=== PATIENT | female | born 1990 | race Caucasian/White ===

== ENCOUNTER 2023-05-07 12:55 | Emergency (ER) | payer BC, SELFPAY ==
[2023-05-07 12:57] VITALS: BP 155/88
--- NOTE | 2023-05-07 13:17 | ED.GENMED ---
History of Present Illness
General
Chief Complaint: Abdominal Pain
Time Seen by Provider: 05/07/23 13:17
Travel History
Have you had any contact with someone who has COVID-19?: No
Do you have any symptoms of coronavirus? Fever > 100 degrees, chills, cough, shortness of breath, sore throat, loss of taste or smell, muscle aches, or headache?: No
History of Present Illness
History of Present Illness:
HPI: Patient presents with left flank and left-sided abdominal pain. This started about 2 weeks ago. The symptoms worsen with position changes. She has some associated nausea. She has had cholecystectomy in the past. This does not feel like
endometriosis exacerbation. She has had kidney stones but is not sure if this is the same type of pain. She has tried Advil and Tylenol without improvement.
EXAM:
GENERAL: Well appearing in mild distress
HEENT: Moist oral mucosa
CARDIOVASCULAR: No murmurs, normal heart rate and rhythm, No chest wall tenderness
PULMONARY: No respiratory distress, breath sounds are clear and equal
ABDOMEN: Soft with no peritoneal signs, left-sided abdominal tenderness, left CVA tenderness is moderate
NEUROLOGIC: Excellent strength all extremities, no coordination deficits
PSYCHIATRIC: Appropriate mental status, normal insight and judgement
EXTREMITIES: Nontender, no edema, moves all extremities equally
SKIN: No rash, no lesions
ED COURSE:
1:20 PM: I initially evaluated initially
NUMBER AND COMPLEXITY OF PROBLEMS ADDRESSED AT THE ENCOUNTER
� Chronic conditions affecting care: GERD, endometriosis, cholecystectomy
� Acute Exacerbation and/or Progression of Chronic Illness: This is an acute problem
� Differential Diagnosis includes: Ureteral stone/colic, UTI/pyelonephritis, musculoskeletal pain
AMOUNT AND/OR COMPLEXITY OF DATA TO BE REVIEWED AND ANALYZED
� I performed an independent evaluation of and my interpretation is:
EKG:
CT: I personally viewed CT imaging�no acute abnormality
X-rays:
Laboratory Studies: CBC including white count normal, chemistries unremarkable�transaminases minimally elevated, lipase normal, hCG negative, trace leukocyte esterase with greater than 30 squamous epithelial cells�doubt UTI
Other:
� Review of other/old records: No old records available for review
� Clinical information was obtained by an independent historian: I spoke to the at bedside
� Prescriptions/Medications Considered but not given:
� Further testing considered but not performed:
RISK OF COMPLICATIONS AND/OR MORBIDITY OR MORTALITY OF PATIENT MANAGEMENT
� Social determinants of health affecting care: Lives at home
� Discussion with other providers:
� Escalation of care including admission/observation vs risk of discharge considered: The patient reports improvement after Toradol was given. Labs and CT imaging unremarkable. More strongly favor musculoskeletal etiology and
or oblique muscle strain. Recommended NSAIDs.
Phy Exam
Physical Exam
Physical Exam:
See HPI
Course
Orders/Labs/Results
Orders:
Orders
05/07/23 13:24
Test Result ONCE
05/07/23 13:25
CT Abd/pel Without Iv Or Oral Urgent
Comment:
Reason For Exam: L flank / L abd pain / L CVA tender
0.9% Sodium Chloride 1000 ml [Nss] 1,000 ml IV BOLUS
Ketorolac [Toradol] 15 mg IV NOW STA
Ondansetron Injectable [Zofran] 4 mg IV NOW STA
05/07/23 13:43
Complete Blood Count/With Diff Urgent
Comprehensive Metabolic Panel Urgent
HCG, Serum Qualitative Screen Urgent
Lipase Urgent
05/07/23 13:45
Urinalysis Reflex To Culture Urgent
Date Specimen was Collected: 05/07/23
Time Specimen was Collected: 13:44
Urine Microscopic Reflex Cult Urgent
Urine Culture Urgent
SUMAYA Source: U
Specimen Description:
Date Specimen was Collected: 05/07/23
Time Specimen was Collected: 13:44
Abnormal Lab Results
05/07/23 05/07/23
13:43 13:45
Plt Count 487 H 10^3/uL
(130-400)
AST 48 H U/L
(14-36)
ALT 38 H U/L
(0-35)
Urine Ketones 1+ A
(Negative)
Leukocyte Esterase Rfl Trace A
(Negative)
Urine Bacteria (Reflex) Many A
(Negative)
05/07/23 13:43
05/07/23 13:43
Vital Signs
Initial and Last Documented VS:
Initial Vital Signs
Temp Pulse Resp BP Pulse Ox
98.4 F 92 18 155/88 97
05/07/23 12:57 05/07/23 12:57 05/07/23 12:57 05/07/23 12:57 05/07/23 12:57
Last Documented Vital Signs
Temp Pulse Resp BP Pulse Ox
98.4 F 77 18 127/74 97
05/07/23 12:57 05/07/23 16:36 05/07/23 12:57 05/07/23 16:36 05/07/23 12:57
*Critical Care Note
Total Time (30-74mins, 75-104mins- exclusive of procedures): Not Applicable
ED Attending Note
-
Portions of this chart may have been created with voice recognition software.� Occasional wrong word or��sound alike� substitutions may have occurred due to the inherent limitations of voice recognition software.
Discharge Plan
Departure
Patient Disposition: Home (Routine Discharge)
Date of Disposition: 05/07/23
Time of Disposition: 16:26
Patient with high blood pressure during this ER visit?: Yes
Discharge Problem:
Abdominal pain
Instructions: Abdominal Pain, BLOOD PRESSURE
Prescriptions:
New
ondansetron HCl 4 mg tablet
4 mg PO Q8H PRN (Reason: nausea and vomiting) Qty: 12 0RF
Referrals:
Zoran Bullock MD [Family Provider] -
Activity Restrictions/Additional Instructions:
Please follow-up your primary care doctor. I recommend 3-4 [id number] ibuprofen (Motrin) every 8 hours with food for a few days. Return here if worse. I suspect more of a musculoskeletal etiology of your pain.
Interventions
Interventions:
*Risk Screen - Suicide Last Done: 05/07/23 13:33
*General Assessment Last Done: 05/07/23 13:33
*Neglect/Abuse Screening Last Done: 05/07/23 13:33
*ED COVID-19 Vaccine History Last Done: 05/07/23 13:33
*Nursing Disposition Last Done: 05/07/23 16:36
QM-Rfeuji-Latbtbbyzr Assessment Last Done: 05/07/23 13:37
Discharge Date and Time
Discharge Date/Time: 05/07/23 16:37
[2023-05-07 13:33] VITALS: BMI 37.1
[2023-05-07] MEDS: NSS 1000 IV (13:51)
[2023-05-07] MEDS: ZOFRAN 4 MG IV (13:52)
[2023-05-07] MEDS: TORADOL 15 MG IV (13:54)
[2023-05-07 13:55] LABS: % Basophils 0.7 % (0-2); % Eosinophils 3.9 % (0-6); % Immature Granulocytes 0.3 % (0-0.5); % Lymphocytes 32.9 % (20.5-51.1); % Monocytes 5.7 % (1.7-9.3); % Neutrophils 56.5 % (42.2-75.2); Absolute Basophils 0.1 10^3/uL (0-0.2); Absolute Eosinophils 0.3 10^3/uL (0-0.7); Absolute Lymphocytes 2.5 10^3/uL (1.2-3.4); Absolute Monocytes 0.4 10^3/uL (0.1-0.6); Absolute Neutrophils 4.2 10^3/uL (1.4-6.5); Hematocrit 39.1 % (37.0-47.0); Hemoglobin 13.2 g/dL (12.0-16.0); Mean Corp Hgb Conc. 33.8 g/dL (33.0-37.0); Mean Platelet Volume 9.6 fL (7.4-10.4); Nucleated Red Blood Cells % 0 %; Platelet Count 487 10^3/uL (130-400); Red Blood Cell Count 4.71 10^6/uL (4.20-5.40); Red Cell Dist. Width 12.6 % (11.5-14.5); White Blood Cell Count 7.5 10^3/uL (4.8-10.8)
[2023-05-07 13:57] LABS: Urine Albumin Negative (Neg - Trace); Urine Bilirubin Negative (Negative); Urine Character Clear (Clear); Urine Color Yellow; Urine Glucose Negative (Negative); Urine Ketone 1+ (Negative); Urine Leukocyte Trace (Negative); Urine Nitrite Negative (Negative); Urine Occult Blood Negative (Negative); Urine Specific Gravity 1.025 (<1.030); Urine Urobilinogen Negative (Neg - 1+)
[2023-05-07 14:07] LABS: Urine Mucus Few; Urine Squamous Cell >30 /LPF (Few)
[2023-05-07 14:09] LABS: Urine Amorphous Seen; Urine Bacteria Many (Negative); Urine Red Blood Cell 0-2 /HPF (0-2)
[2023-05-07 14:27] LABS: ALT (SGPT) 38 U/L (0-35); AST (SGOT) 48 U/L (14-36); Albumin 4.3 g/dl (3.5-5.0); Alkaline Phosphatase 82 U/L (38-126); Blood Urea Nitrogen 13 mg/dl (7-17); Calcium 9.6 mg/dl (8.4-10.2); Carbon Dioxide 22 mmol/L (22-30); Chloride 105 mmol/L (98-107); Estimated Creatinine Clearance 123 ml/min; Glucose 89 mg/dl (70-99); Lipase 116 U/L (23-300); Potassium 4.4 mmol/L (3.5-5.1); Sodium 136 mmol/L (135-145); Total Bilirubin 0.6 mg/dl (0.2-1.3); Total Protein 7.8 g/dl (6.3-8.2); eGFR > 60.00
[2023-05-07 14:35] LABS: HCG, Serum Qualitative Screen Negative
[2023-05-07 15:45] VITALS: BP 127/74
[2023-05-07 16:36] VITALS: BP 127/74
== END 2023-05-07 16:37 | disposition home or self-care (01) ==
LOC: EMR 12:55
PROVIDERS: EMERGENCY PHYSICIAN Emergency Medicine; FAMILY PHYSICIAN Family Medicine
DX: R10.9 Unspecified abdominal pain (principal); K21.9 Gastro-esophageal reflux disease without esophagitis; Z87.442 Personal history of urinary calculi
CPT/HCPCS: 99284; 96374; 96375; 96361; 74176; 80053; 81003; 81015; 83690; 84703; 85025; 87086

== ENCOUNTER 2024-02-11 21:26 | Emergency (ER) | payer BC, SELFPAY ==
[2024-02-11 21:31] VITALS: BP 150/84
[2024-02-11 21:46] LABS: Hematocrit 34.2 % (37.0-47.0); Hemoglobin 11.2 g/dL (12.0-16.0); Mean Corp Hgb Conc. 32.7 g/dL (33.0-37.0); Mean Corpuscular Hgb 26.9 pg (27.0-31.0); Mean Platelet Volume 9.6 fL (7.4-10.4); Platelet Count 434 10^3/uL (130-400); Red Blood Cell Count 4.17 10^6/uL (4.20-5.40); Red Cell Dist. Width 13.7 % (11.5-14.5); White Blood Cell Count 9.6 10^3/uL (4.8-10.8)
[2024-02-11 22:04] LABS: Blood Urea Nitrogen 12 mg/dl (7-17); Calcium 9.7 mg/dl (8.4-10.2); Carbon Dioxide 25 mmol/L (22-30); Chloride 100 mmol/L (98-107); Glucose 169 mg/dl (70-99); Sodium 136 mmol/L (135-145); eGFR > 60.00
[2024-02-12 00:19] LABS: Urine Albumin Negative (Neg - Trace); Urine Bilirubin Negative (Negative); Urine Character Clear (Clear); Urine Color Straw; Urine Glucose Negative (Negative); Urine Ketone Negative (Negative); Urine Leukocyte Negative (Negative); Urine Nitrite Negative (Negative); Urine Occult Blood Negative (Negative); Urine Specific Gravity 1.005 (<1.030); Urine Urobilinogen Negative (Neg - 1+); Urine pH 6.5 (5.0-9.0)
[2024-02-12 01:10] VITALS: BP 135/68; BMI 38.6
--- NOTE | 2024-02-12 01:54 | ED.GENMED ---
History of Present Illness
General
Chief Complaint: Problems
Source: patient and spouse
Exam Limitations: none
Time Seen by Provider: 02/12/24 01:14
Nursing documentation reviewed up to this point in time: agreed with except (No bleeding or spotting)
History of Present Illness
History of Present Illness:
33-year-old female G1 9 weeks followed at [facility] Dr. Alejandre sharp right sided lower abdominal pain after eating dinner this evening, no vaginal bleeding has a little bit of cramping, has appointment for follow-up ultrasound in 2
days, has endometriosis, will eventually be referred to [facility] per the patient
Past History
Past History
ED Past Medical History: Other (Endometriosis)
ED Past Surgical History: Cholecystectomy
Social History
Tobacco: Non-smoker
Alcohol: None
Drug: None
Personal:
Living: with family
Employment: Employed
Review of Systems
Review of Systems
All Other Systems: Not applicable
Constitutional: Denies fever
EENT: Reports no symptoms
Respiratory: Reports no symptoms
Cardiac: Reports no symptoms
ABD/GI: Reports abdominal pain; Denies nausea, vomiting or anorexia
: Denies dysuria, incontinence or bleeding
Phy Exam
Physical Exam
Physical Exam:
Physical Exam
General: no apparent distress, not acutely ill
Neck: No jaundice
Heart: s1/s2 regular rate and rhythm, no murmur. equal radial pulses.
Lungs: no acute respiratory distress. clear bilaterally
Abdomen: Mild tenderness in the very low right lower quadrant
Neuro: alert and oriented. no focal neurological deficits
Skin: no rash
Psychiatric: well kept. interactive and cooperative
Extremities: no edema.
Course
Orders/Labs/Results
Orders:
Orders
02/11/24 21:34
US W Transvaginal Urgent
Reason For Exam: RIGHT SIDED PAIN
02/11/24 21:39
Basic Metabolic Panel Urgent
Beta HCG Quantitative Urgent
Comment: ADD ON
Complete Blood Count/No Diff Urgent
02/11/24 21:44
Add On- LAB Urgent
Tests Added?: hcg quant
02/11/24 23:48
Blood Group&Type Urgent
Urinalysis Reflex To Culture Urgent
Date Specimen was Collected: 02/11/24
Time Specimen was Collected: 23:46
02/12/24 00:15
ABO2 Urgent
BBK Wristband Number:
Associate notified that ABO2 has been ordered: [id number]
Date: 02/12/24
Time: 00:15
Dining Room Manager ID: [id number]
Abnormal Lab Results
02/11/24
21:39
RBC 4.17 L 10^6/uL
(4.20-5.40)
Hgb 11.2 L g/dL
(12.0-16.0)
Hct 34.2 L %
(37.0-47.0)
MCH 26.9 L pg
(27.0-31.0)
MCHC 32.7 L g/dL
(33.0-37.0)
Plt Count 434 H 10^3/uL
(130-400)
Creatinine 0.5 L mg/dL
(0.6-1.0)
Glucose 169 H mg/dl
(70-99)
02/11/24 21:39
02/11/24 21:39
Vital Signs
Initial and Last Documented VS:
Initial Vital Signs
Temp Pulse Resp BP Pulse Ox
97.7 F 104 22 150/84 96
02/11/24 21:31 02/11/24 21:31 02/11/24 21:31 02/11/24 21:31 02/11/24 21:31
Last Documented Vital Signs
Temp Pulse Resp BP Pulse Ox
97.7 F 97 20 135/68 97
02/11/24 21:31 02/12/24 01:10 02/12/24 01:10 02/12/24 01:10 02/12/24 01:10
Information
Weeks gestation: Weeks: (6)
Location: Location: ([facility])
MDM/Problems Addressed
Differential Diagnosis Includes:
Ectopic, pelvic pain, threatened AB, conceivably appendicitis
MDM/Problems Addressed:
Pelvic pain
Chronic conditions affecting care:
Endometriosis
Acute Exacerbation and/or Progression of Chronic Illness:
Endometriosis
*Radiology
Radiology exam reviewed: radiology read reviewed
*Pulse Oximetry
Patient hypoxic: no
*Critical Care Note
Total Time (30-74mins, 75-104mins- exclusive of procedures): Not Applicable
Update Note
Update Note:
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
ED Attending Note
-
Portions of this chart may have been created with voice recognition software.� Occasional wrong word or��sound alike� substitutions may have occurred due to the inherent limitations of voice recognition software.
Discharge Plan
Departure
Patient Disposition: Home (Routine Discharge)
Date of Disposition: 02/12/24
Time of Disposition: 01:41
Patient with high blood pressure during this ER visit?: No
Condition: Good
Discharge Problem:
Threatened miscarriage
Instructions: Threatened Miscarriage (DC)
Prescriptions:
No Action
ondansetron HCl 4 mg tablet
4 mg PO Q8H PRN (Reason: nausea and vomiting) Qty: 12 0RF
Referrals:
Zoran Bullock MD [Family Provider] -
Activity Restrictions/Additional Instructions:
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
Obtain an ultrasound on as scheduled, he will require repeat blood work in 1 week
Interventions
Interventions:
*Risk Screen - Suicide Last Done: 02/11/24 21:29
*General Assessment Last Done: 02/12/24 01:10
*Neglect/Abuse Screening Last Done: 02/11/24 21:29
ED- Fall Risk Assessment Last Done: 02/12/24 01:10
*ED COVID-19 Vaccine History Last Done: 02/12/24 01:10
ED-Female Genitourinary Assessment Last Done: 02/12/24 01:10
Discharge Date and Time
Print Language: [place]
== END 2024-02-12 02:00 | disposition home or self-care (01) ==
LOC: EMR 21:26
PROVIDERS: EMERGENCY PHYSICIAN Emergency Medicine; FAMILY PHYSICIAN Family Medicine
DX: O20.0 Threatened abortion (principal); Z90.49 Acquired absence of other specified parts of digestive tract; Z3A.01 Less than 8 weeks gestation of pregnancy
CPT/HCPCS: 99284; 76801; 76817; 80048; 81003; 84702; 85027; 86900; 86901